=== PATIENT | male | born 1950 | race Caucasian/White ===

== ENCOUNTER → 2025-02-22 12:00 | Outpatient (REF) | payer MEDICARE, SELFPAY ==
--- NOTE | 2025-02-22 12:00 | S_PTH ---
PATIENT: Buddy Lutz LOC: [facility]#:[id number] AGE/SX: 74/M ROOM: RE02/22/[address]: Hernán Lund MD : 1950 BED: DIS: SPEC #: [id number] RECD: 02/22/25 12:46 STATUS: DANILO REBob #: [id number] HESHAM: 02/22/25 12:[address]: Hernán Lund DEPT: [facility] Surgical RECD BY: Kaylyn Freeman ENTERED: 02/22/25 12:47 SP TYPE: Surgical OTHR DR: Fabiano ConnMD Tissues: A - Cyst Procedures: Hematoxylin and Eosin Stain Gross and Microscopic Level 4
--- OUTSIDE RECORDS SUMMARY | 2025-02-22 14:05 | XMS_ITS | Clinical Summary ---
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
--- OUTSIDE RECORDS SUMMARY | 2025-02-22 14:05 | XMS_ITS | Clinical Summary ---
Author Organization [facility] [address] [facility] Address [address] [place] [address] Care Team Providers Care Sew Out Operator Name Role Phone Fabiano Conn MD Primary Care Provider [phone] Gamal Jarquin MD Unavailable [phone] Allergies No known active allergies Medications clonazePAM (KlonoPIN) 0.5 mg tablet Take 0.5 mg by mouth 2 (two) times a day as needed for anxiety 0 Active citalopram (CeleXA) 20 mg tabletIndication s:Anxiety with Depression Take 20 mg by mouth every morning [address] (PROTONIX) 40 mg EC tabletIndication s:Stress Ulcer Prophylaxis Take 40 mg by mouth every morning 0 Active zolpidem (AMBIEN) 10 mg tablet Take 10 mg by mouth nightly as needed for sleep 1 0 Active vitamin b complex tabletIndication s:Vitamin Deficiency Prevention Take 1 tablet by mouth every morning Active erythromycin (ILOTYCIN) ophthalmic ointment Place ointment on right eyelid incisions 3 times a day. Only place inside the eye for irritation. 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 EYE SURGERY CATARACT EXTRACTION 09/14/2017 - 09/13/2018 OTHER SURGICAL HISTORY 12/31/2021 eye lid surgery Medical History Medical History Date Comments Gastric reflux Anxiety Cancer (HCC) Family History Medical History Relation Name Comments Cancer Brother Cancer Mother Anesthesia problems Neg Hx Blindness Neg Hx Diabetes Neg Hx Glaucoma Neg Hx Macular degeneration Neg Hx Retinal detachment Neg Hx Strabismus Neg Hx Thyroid disease Neg Hx Relation Name Status Comments Brother Other pancreatic Mother Other breast Social History Tobacco Use Types Packs/Day Years Used Date Smoking Tobacco: Former Cigarettes 1 35 1 961 - 1995 Smokeless Tobacco: Never Alcohol Use Standard Drinks/Week Comments Yes 0 (1 standard drink = 0.6 oz pur e alcohol) AUDIT-C Answer Date Recorded Q1: How often do you have a drink containing alcohol? 4 or more times a week 01/21/2022 Q2: How many drinks containi ng alcohol do you have on a typical day when you are drinking? 1 or 2 Q3: How often do you have si x or more drinks on one occasion? 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 Not on file Not on file Obstetrics History Last Filed Vital Signs Vital Sign Reading Time Taken Comments Blood Pressure 134/89 02/04/2022 10:50 AM CDT Pulse 72 02/04/2022 10:50 AM CDT Temperature 36.5 C (97.7 F) 02/04/2022 10:20 AM CDT Respiratory Rate 11 02/04/2022 10:50 AM CDT Oxygen Saturation 93% 02/04/2022 10:50 AM CDT Inhaled Oxygen Concentration - - Weight 90.7 kg (200 lb) 01/21/2022 1:05 PM CDT Height 182.9 cm (6') 01/21/2022 1:05 PM CDT Body Mass Index 27.12 01/21/2022 1:05 PM CDT Plan of Treatment Health Maintenance Due Date Last Done Comments Depression Screening 1950 Hepatitis C Screening 1950 DTaP/Tdap/Td Vaccine (1 - Tdap) 1959 Hepatitis B Screening 1966 Pneumococcal vaccine 65+ (1 of 1 - PCV) 1998 Zoster Vaccine (1 of 2) 1998 Abdominal Aortic Aneurysm (A AA) Screen 2013 Well Visit 65+ 2013 Fall Risk Assessment 02/04/2023 02/04/2022 Covid-19 Vaccine (2023-2 5 season) 2024 01/09/2022, 06/17/2021, 11/23/2020, Additional history exists Influenza Vaccine (Season Ended) 2025 08/02/2021, 06/14/2020, 06/13/2019, Additional history exists Insurance MEDICARE [id number] Member Subscriber Plan / Payer (Ef fective 2019-Present) Name:Buddy Lutz Relation to Subscriber:Self Name:Nelda Buddy Parish Payer ID:[id number] Group ID:Not on file Type:COMMERCIAL Address: [address] [facility] MEDICARE RAILROAD MEDICARE RAILROAD [address] Care Teams Sew Out Operator Relationship Specialty Start Date End Date Fabiano Conn MD PCP - General 10/24/19 Gamal Jarquin MD [address] [place] [address] Consulting Physician Ophthalmology 12/25/21
--- OUTSIDE RECORDS SUMMARY | 2025-02-22 14:05 | XMS_ITS | Clinical Summary ---
Author Organization [facility] Address [address] [place] [address] Care Team Providers Care Cryptographic Vulnerability Analyst Name Role Phone Unavailable Primary Care Provider Unavailabl e Immunizations Immunization Administration Dates Next Due Covid-19, Mrna, Lnp-s, Pf, 30 Mcg/0.3 Ml Dose (P fizer) 06/17/2021 Social History Tobacco Use Types Packs/Day Years Used Date Smoking Tobacco: Never Assessed Sex and Gender Information Value Date Recorded Sex Assigned at Not on file Legal Sex Male 2:10 PM CDT Gender Identity Not on file Sexual Orientation Not on file Plan of Treatment Health Maintenance Due Date Last Done Comments Hepatitis C Virus (HCV) Screening 1950 TdaP Immunization 1950 Pneumococcal Immunization (50+ years) (1 of 1 - PCV) 1998 Zoster Immunization (1 of 2) 1998 Respiratory Syncytial Virus (RSV) Immunization (Adult) (1 - 1-dose 75+ series) 2023 SARS-COV-2 Immunization ( season) 2024 06/17/2021, 11/23/2020, 10/30/2020 Influenza Immunization (Season Ended) 2025 06/14/2020, 06/13/2019, 08/05/2016, Additional history exists Hepatitis B Immunization Aged Out No longer eligible based on patient's age to complete this topic Human Papillomavirus (HPV) Immunization Aged Out No longer eligible based on patient's age to complete this topic Meningococcal Immunization (ACWY) Aged Out No longer eligible based on patient's age to complete this topic Rotavirus Immunization Aged Out No lo nger eligible based on patient's age to complete this topic
--- OUTSIDE RECORDS SUMMARY | 2025-02-22 14:05 | XMS_ITS | Referral Summary ---
Author Organization [facility] [address] [facility] Address [address] [place] [address] Care Team Providers Care Strategic Development Manager Name Role Phone Fabiano Conn MD Primary Care Provider [phone] Gamal Jarquin MD Unavailable [phone] Allergies No known active allergies Medications clonazePAM [...] (12/19/2021): Added automatically from request for surgery [id number] Immunizations Immunization Administration Dates Next Due Pfizer SARS-CoV-2 Monovalent Vaccination (12+ Yrs) PURPLE 01/09/2022 Social History Tobacco Use Types Packs/Day Years Used Date Smoking Tobacco: Former Cigarettes 1 35 1 961 - 1996 Smokeless Tobacco: Never Alcohol Use Standard Drinks/Week [...] 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
== END ==
LOC: ANHLAB 12:00
PROVIDERS: PCP Family Medicine; Visit Provider Plastic Surgery
DX: L72.3 Sebaceous cyst (principal)
CPT/HCPCS: 88305